=== PATIENT | female | born 1995 | race Caucasian/White ===

== ENCOUNTER 2024-11-26 09:22 | Outpatient (AMB) | payer BC, SELFPAY ==
--- NOTE | 2024-11-26 09:36 | AMB.GYNCLNOT ---
Vital Signs 11/26/24 09:37 Height 1.63 m Height Method Stated Weight 65.062 kg Weight Measurement Method Standing Scale BMI 24.6 BP 104/70 Blood Pressure Source Automatic Cuff Blood Pressure Location Left Upper Arm Position Sitting Respiration 16 Pulse 71 Pulse Source Monitor Temp 97.2 F Temp Source Oral Pulse Oximetry (%) 99 Oxygen Delivery Method Room Air Allergies/Home Meds Allergies & Medications Allergies dextromethorphan (From NyQuil) Allergy (Severe, Verified 11/26/24 09:38) Hives doxylamine (From NyQuil) Allergy (Severe, Verified 11/26/24 09:38) Hives pseudoephedrine (From NyQuil) Allergy (Severe, Verified 11/26/24 09:38) Hives Medication Reconciliation No Known Home Medications 11/26/24 [History Confirmed 11/26/24] Intake Visit Data Collection New Patient or Established: Established Patient (seen at [facility] within 3 years) Reason for Visit:: Establish care. Follow up on Fibroids and PCOS. 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 1. Little interest or pleasure in doing things: not at all 2. Feeling down, depressed, or hopeless: not at all Total score: 0 PHQ-9 3. Trouble falling or staying asleep, or sleeping too much: Not at all 4. Feeling tired or having little energy: Not at all 5. Poor appetite or overeating: Not at all 6. Feeling bad about yourself - or that you are a failure or have let yourself or your family down: Not at all 7. Trouble concentrating on things, such as reading the newspaper or watching television: Not at all 8. Moving or speaking so slowly that other people could have noticed? - Or the opposite - being so fidgety or restless that you have been moving around a lot more than usual: not at all 9. Thoughts that you would be better off or of hurting yourself in some way: Not at all Total score: 0 If you checked off any problems, how difficult have these problems made it for you to do your work, take care of things at home, or get along with other people?: not difficult at all Source: Developed by Drs. Colby Isaacs, Selena Newell, Saúl Powers and colleagues, with an educational nito from [employer]. Depression screen completed yes Social History Living Situation History Marital Status: Life Partner Lives With: Significant Other Housing: House Housing Other:: BF has a son who is 4. BF is 36. Employed as finance tech Tobacco History Smoking Status: Never smoker Alcohol History Alcohol Intake Frequency: holidays/special occasions only Domestic Abuse History Do You Feel Safe at Home: Yes Past Medical History Past Medical History Have you ever been diagnosed with any of the following: Neurological Problems Seizures: No Migraine: No Cardiology Problems Hypercholesterolemia: No Hypertension: No Respiratory Problems Asthma: Yes Tobacco Use: No Stomache/Intestinal Problems Gastrointestinal Bleed: Yes (Had EGD 05/03 for some upper GI bleeding) Ulcer: No Genital/Urinary Problems Renal Disease: No Reproductive Problems Breast Cancer: No Endometriosis: No Fibroids: Yes Genital Herpes: No Pelvic Inflammatory Disease: No Polycystic Ovarian Syndrome: Yes Previous Pregnancies: No Musculoskeletal Problems Rheumatoid Arthritis: No Fibromyalgia: Yes (Nonspecific joint pain multiple joints. No official rhem dx at this time) Endocrine Problems Diabetes Mellitus Type 2: No Hyperthyroidism: No Blood Problems Anemia: No Psychologic Problems Anxiety: Yes Other Problems Anesthesia Reactions: No Surgical History Additional Surgical History: Upper GI 2022 History of Present Illness HPI Narrative The pt is a 31 y/o G0 who used to see me in [place]. I do not have any records to review, She states she was diagnosed with PCOS in the past and also with fibroids, She was not sure how many or where. She is in a relationship using condoms and withdrawl for contraception. She declines OCPs stating she does not like how she feels on them . She has some dysparunia after intercourse and is willing to trying pelvic floor PT. She is undecided about a anytime soon but wants to retain her uterus. She has been looking up the treatment of fibroids online, Review of Systems Review of Systems Narrative Review of Systems: Pt has a hx of pain after intercourse x 2. Cycles are regular but heavy with cramps to legs Exam General Limitations: no limitations General Appearance: alert, in no apparent distress, comfortable, cooperative, healthy appearing, well developed and well groomed ENT ENT exam: Present normal exam, normal oropharynx and mucous membranes moist Neck Neck exam: Present normal inspection, full ROM and trachea midline Chest Chest inspection: Present normal inspection and symmetric chest wall rise Resp Respiratory exam: Present normal lung sounds bilaterally Card Cardiovascular exam: Present regular rate, normal rhythm and normal heart sounds Abdominal Abdominal exam: Present soft and normal bowel sounds Psych Psychiatric exam: Present normal affect and normal mood Skin Skin exam: Present warm, dry, intact and normal color Assessment & Plan Diagnosis / Problem List (1) Pelvic pain: Status: Acute Assessment and Plan: Check pelvic US. Refer to pelvic floor PT (2) Intramural uterine fibroid: Status: Acute Assessment and Plan: Check pelvic US (3) DUB (dysfunctional uterine bleeding): Status: Acute Assessment and Plan: Check CBC and TSH, Office Procedures OB Clinic LOC & Office Proc's Nursing/Assessment Patient Status: Established Patient OB Clinic Nursing Assessment: BP Monitoring, Medication Reconciliation, Update PMH in EMR and Vital Signs OB Clinic Coordination of Care: Complex Care and Chronic Disease 1-5, Consent,records obtained, informed consent, Education Simp Pt/Fam, Lab and Imaging orders and Staff clarify orders Established Patient Charge Established Patient Point Assignment: 115 Established Patient Point Charge: EP Level 3 (80-115)
[2024-11-26 09:37] VITALS: BP 104/70; PULSE 71; RESP 16; TEMP 36.2; O2SAT 99; BMI 24.6
== END 2024-11-26 10:17 | disposition home or self-care (01) ==
LOC: HODSOBC 09:22
PROVIDERS: Supervising Provider Obstetrics & Gynecology; Visit Provider Obstetrics & Gynecology
DX: D25.1 Intramural leiomyoma of uterus (principal); N93.8 Other specified abnormal uterine and vaginal bleeding; N94.10 Unspecified dyspareunia
CPT/HCPCS: 99213; G0463

== ENCOUNTER → 2024-11-26 | Outpatient (CLI) | payer BC, SELFPAY ==
--- NOTE | 2024-11-26 11:07 | XR_ITS ---
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
[2024-11-26 13:11] LABS: Basophils % (Auto) 1 % (0-2.5); Eosinophils % (Auto) 1 % (0-10); Hematocrit 41.7 % (36.0-46.0); Hemoglobin 13.6 g/dL (12.0-16.0); Immature Granulocytes % (Auto) 0 % (0-0); Immature Granulocytes Auto 0.01 Thou/mm3 (0.00-0.00); Lymphocytes # (Auto) 3.1 Thou/mm3 (1.0-4.8); Lymphocytes % (Auto) 50 % (10-50); Mean Corpuscular HGB Conc 32.6 g/dl (31.0-37.0); Mean Corpuscular Hemoglobin 28.5 pg (25.0-35.0); Mean Corpuscular Volume 87 fL (80-100); Monocytes # (Auto) 0.4 Thou/mm3 (0.0-0.8); Monocytes % (Auto) 7 % (0-12); Neutrophils # (Auto) 2.6 Thou/mm3 (1.8-7.7); Neutrophils % (Auto) 42 % (37-80); Nucleated Red Blood Cell % 0 /100 WBC (0); Platelet Count 298 Thou/mm3 (140-440); RDW Standard Deviation 43.3 fL (36.4-46.3); Red Blood Count 4.77 Miln/mm3 (4.00-5.20); White Blood Count 6.3 Thou/mm3 (3.6-11.0)
[2024-11-26 13:28] LABS: Thyroid Stimulating Hormone 0.73 uIU/mL (0.55-4.78)
== END | disposition home or self-care (01) ==
PROVIDERS: Referring Provider Obstetrics & Gynecology; Visit Provider Obstetrics & Gynecology
DX: N83.8 Other noninflammatory disorders of ovary, fallopian tube and broad ligament (principal); D25.1 Intramural leiomyoma of uterus; N93.8 Other specified abnormal uterine and vaginal bleeding; R10.2 Pelvic and perineal pain
CPT/HCPCS: 36415; 76856; 84443; 85025

== ENCOUNTER 2024-12-17 15:45 | Outpatient (AMB) | payer BC, SELFPAY ==
--- NOTE | 2024-12-17 15:49 | GYNCLNT_ITS ---
Vital Signs 12/17/24 15:50 Height 1.63 m Height Method Stated Weight 63.503 kg Weight Measurement Method Standing Scale BMI 23.8 BP 107/69 Blood Pressure Source Automatic Cuff Blood Pressure Location Right Upper Arm Position Sitting Respiration 14 Pulse 73 Pulse Source Monitor Temp 98 F Temp Source Oral Pulse Oximetry (%) 98 Oxygen Delivery Method Room Air Allergies/Home Meds Allergies & Medications Allergies dextromethorphan (From NyQuil) Allergy (Severe, Verified 12/22/24 15:28) Hives doxylamine (From NyQuil) Allergy (Severe, Verified 12/22/24 15:28) Hives pseudoephedrine (From NyQuil) Allergy (Severe, Verified 12/22/24 15:28) Hives Medication Reconciliation No Known Home Medications 11/26/24 [History Confirmed 12/22/24] Intake Visit Data Collection New Patient or Established: Established Patient (seen at [facility] within 3 years) Reason for Visit:: LAB AND ULTRASOUND RESULTS Consent obtained for Telemed Visit: No Seen by Clinical Staff ONLY (RN/MA): Yes Resource Center Teacher Required: No Do You Feel Safe at Home: Yes Authorities Contacted: N/A PCP or OBGYN visit in last 3 months: Yes Hx Now: No Last menstrual period: 12/11/24 Pain Present Currently: No Pain Scale Used: Bower-Grewal/Numerical Pain scale:: 0 Smoking Status Smoking Status: Never smoker 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 1. Little interest or pleasure in doing things: not at all PHQ-9 8. Moving or speaking so slowly that other people could have noticed? - Or the opposite - being so fidgety or restless that you have been moving around a lot more than usual: not at all Source: Developed by Drs. Colby Isaacs, Selena Newell, Súal Powers and colleagues, with an educational nito from [employer]. Social History Living Situation History Lives With: Significant Other Housing: House Housing Other:: BF has a son who is 4. BF is 36. Employed as finance tech Tobacco History Smoking Status: Never smoker Alcohol History Alcohol Intake Frequency: holidays/special occasions only Domestic Abuse History Do You Feel Safe at Home: Yes History of Present Illness HPI Narrative 29-year-old nullip that comes for follow-up appointment at [facility] for lab and ultrasound results. Menses are monthly x 5 days. Normal in flow per patient. Last period was mid November. Denies social habits. Patient has a history of PCOS and previous history of fibroids. Denies surgeries. Denies existence of chronic illness. Review of Systems Review of Systems Systems Reviewed: All systems reviewed, normal except as documented Exam General Limitations: no limitations General Appearance: alert, in no apparent distress, comfortable, cooperative, healthy appearing, well developed and well groomed Head Head exam: atraumatic, normocephalic and normal inspection Eye Eye exam: Present normal appearance, PERRL and EOMI ENT ENT exam: Present normal exam, normal oropharynx and mucous membranes moist Neck Neck exam: Present normal inspection, full ROM and trachea midline Chest Chest inspection: Present normal inspection and symmetric chest wall rise Resp Respiratory exam: Present normal lung sounds bilaterally Card Cardiovascular exam: Present regular rate, normal rhythm and normal heart sounds Abdominal Abdominal exam: Present soft and normal bowel sounds Extremities Extremities exam: Present normal inspection and full ROM Back Back exam: Present normal inspection and full ROM Neuro Neurological exam: Present alert, oriented X3 and CN II-XII intact Psych Psychiatric exam: Present normal affect and normal mood Skin Skin exam: Present warm, dry, intact and normal color Results Objective Laboratory: pelvic sono 11/26, normal uterine size, normal endometrial stripe, no adnexal mass. no discrete fibroid seen, probable area of fibroid degeneration. labs pending Office Procedures OB Clinic LOC & Office Proc's Nursing/Assessment Patient Status: Established Patient OB Clinic Nursing Assessment: Medication Reconciliation, Update PMH in EMR and Vital Signs OB Clinic Coordination of Care: Complex Care and Chronic Disease 1-5 and Consent,records obtained, informed consent Established Patient Charge Established Patient Point Assignment: 60 Assessment & Plan Diagnosis / Problem List (1) Intramural uterine fibroid: Status: Acute (2) Pelvic pain: Status: Acute Plan continue condom for contraception, Ibuprophen as needed for discomfort. continue with pelvic floor exercise. f/u pelvic sono in 6 month. Additional Plan Follow Up: 6 Months (f/u fibroid)
[2024-12-17 15:50] VITALS: BP 107/69; PULSE 73; RESP 14; TEMP 36.6; O2SAT 98; BMI 23.8
== END 2024-12-17 16:02 | disposition home or self-care (01) ==
LOC: HODSOBC 15:45
PROVIDERS: PCP Advanced Practice Midwife; Referring Provider Advanced Practice Midwife; Supervising Provider Advanced Practice Midwife; Visit Provider Advanced Practice Midwife
CPT/HCPCS: 81001; 99213; G0463

== ENCOUNTER 2024-12-22 14:57 | Outpatient (AMB) | payer BC, SELFPAY ==
[2024-12-22 15:27] VITALS: BP 114/73; PULSE 74; RESP 18; TEMP 36.6; O2SAT 99; BMI 23.9
--- NOTE | 2024-12-22 15:27 | GYNCLNT_ITS ---
Vital Signs 12/22/24 15:27 Height 1.63 m Height Method Stated Weight 63.56 kg Weight Measurement Method Standing Scale BMI 23.9 BP 114/73 Blood Pressure Source Automatic Cuff Blood Pressure Location Right Upper Arm Position Sitting Respiration 18 Pulse 74 Pulse Source Monitor Temp 97.9 F Temp Source Temporal Artery Scan Pulse Oximetry (%) 99 Oxygen Delivery Method Room Air Allergies/Home Meds Allergies & Medications Allergies dextromethorphan (From NyQuil) Allergy (Severe, Verified 12/22/24 15:28) Hives doxylamine (From NyQuil) Allergy (Severe, Verified 12/22/24 15:28) Hives pseudoephedrine (From NyQuil) Allergy (Severe, Verified 12/22/24 15:28) Hives Medication Reconciliation No Known Home Medications 11/26/24 [History Confirmed 12/22/24] Intake Visit Data Collection New Patient or Established: Established Patient (seen at [facility] within 3 years) Reason for Visit:: Follow-up on ultrasound, discussed fibroids. 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 1. Little interest or pleasure in doing things: not at all 2. Feeling down, depressed, or hopeless: not at all Total score: 0 PHQ-9 8. Moving or speaking so slowly that other people could have noticed? - Or the opposite - being so fidgety or restless that you have been moving around a lot more than usual: not at all Source: Developed by Drs. Colby Isaacs, Selena Newell, Saúl Powers and colleagues, with an educational nito from [employer]. Depression screen completed yes Social History Living Situation History Lives With: Significant Other Housing: House Housing Other:: BF has a son who is 4. BF is 36. Employed as finance tech Tobacco History Smoking Status: Never smoker Alcohol History Alcohol Intake Frequency: holidays/special occasions only Domestic Abuse History Do You Feel Safe at Home: Yes History of Present Illness HPI Narrative The patient is a 29-year-old G0 who presents to discuss fibroids. 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 The fibroids are 4.4 cm and 9 cm ,the stripe was 1.4 cm and the left and right ovary were normal. Patient states when she lays flat she can feel her fibroid. She is considering and wants my opinion on what to do about the fibroids. Review of Systems Review of Systems Narrative Review of Systems: Patient has occasional heavy cycles and cramps. She has pain with certain positions during intercourse. Both her and her boyfriend want to try for soon. Exam General General Appearance: alert, cooperative, healthy appearing, well groomed and anxious Abdominal Abdominal exam: Present soft and mass (Patient has a mobile mass in her right lower quadrant approximately 6 x 8 cm) External exam: Present normal external exam Bimanual exam: Present uterine enlargement and other (Anterior fibroid can be palpable felt on pelvic exam is mobile approximately 8 cm x 5 to 6 cm) Results Objective Laboratory: Her labs reviewed with her revealing a thyroid that was normal with a TSH of 0.73 hemoglobin of 13.6 hematocrit of 41.7 platelets of 298 Imaging: Her ultrasound was reviewed with her today from 11/26/2024 revealing uterus to be 9.2 cm with a 1.4 cm stripe left and right ovary were normal she has 2 fibroids 4.4 cm and 8.9 cm. 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 Office Procedures OB Clinic LOC & Office Proc's Nursing/Assessment Patient Status: Established Patient OB Clinic Nursing Assessment: BP Monitoring, Medication Reconciliation, Update PMH in EMR and Vital Signs OB Clinic Coordination of Care: Complex Care and Chronic Disease 1-5, Education Complex Pt/Fam, Consent,records obtained, informed consent and Staff clarify orders Established Patient Charge Established Patient Point Assignment: 105 Established Patient Point Charge: EP Level 3 (80-115) Assessment & Plan Diagnosis / Problem List (1) Intramural uterine fibroid: Status: Acute Assessment and Plan: Patient is planning . I explained to the patient I think her fibroid is pedunculated. Her stripe is not that thick and the fibroid does not seem to be intracavitary. I explained if we performed a myomectomy this would weaken the wall of the uterus and she would have to have a scheduled early. She would not be allowed to labor. Also if we perform surgery to remove a fibroid this can cause scarring and difficulty achieving . At this point I would recommend she leave the fibroid alone. Patient seems unsure of this recommendation. She admits she is quite anxious. Will try to authorize for an MRI to check her fibroid and her uterine cavity. Patient might need a referral out to a minimally invasive gynecologic specialist to remove the fibroid if she would like this removed. I did offer her a referral to Dr. Lucas in [place]. Patient would appreciate an MRI referral at this time. (2) Pelvic pain: Status: Acute Assessment and Plan: Will authorize for an MRI (3) Dyspareunia in female: Status: Acute Assessment and Plan: Will authorize for an MRI
== END 2024-12-22 16:14 | disposition home or self-care (01) ==
PROVIDERS: Supervising Provider Obstetrics & Gynecology; Visit Provider Obstetrics & Gynecology
DX: D25.1 Intramural leiomyoma of uterus (principal); N94.10 Unspecified dyspareunia
CPT/HCPCS: 99213; G0463